=== PATIENT | female | born 1940 | race African-American/Black ===

== ENCOUNTER 2023-01-18 15:23 | Emergency (ER) | payer BC ==
[~2023-01-18] VITALS: Ht 167.6 cm; Wt 78.0 kg
[2023-01-18 15:30] VITALS: TEMP 98.2; O2SAT 99
[2023-01-18] MEDS ORDERED: IBUPROFEN 400MG TABLET PO ONE (16:00)
[2023-01-18] MEDS ORDERED: TRAM50TA3 MT (18:31)
[2023-01-18] MEDS ORDERED: IBUP-2028 MT (18:31)
[2023-01-18 19:34] VITALS: BP 150/72; PULSE 90; RESP 18
== END 2023-01-18 20:09 | disposition home or self-care (01) ==
LOC: ER 15:23
DX: S02.2XXA Fracture of nasal bones, initial encounter for closed fracture (principal); V49.9XXA Car occupant (driver) (passenger) injured in unspecified traffic accident, initial encounter; Y93.89 Activity, other specified; Y92.89 Other specified places as the place of occurrence of the external cause; Y99.8 Other external cause status
CPT/HCPCS: 29125; 70486; 73110; 73130; 99284